=== PATIENT | female | born 1965 | race African-American/Black ===

== ENCOUNTER → 2020-08-12 12:51 | Outpatient (CLI) | payer OTHER, SELFPAY ==
--- NOTE | ~2020-08-12 | MR_ITS ---
EXAMINATION: MR brain/brain stem wo/w con EXAM DATE: 08/12/2020 14:26 INDICATION: Multiple sclerosis. TECHNIQUE: Magnetic resonance imaging (MRI) of the brain/brain stem obtained without contrast. Sagit angelica T1, axial diffusion, gradient echo (T2*), T1, T2, FLAIR sequences obtained. Demyelinating protoco l was utilized including sagittal FLAIR images. Patient was then injected with 10 cc intravenous Mu ltihance contrast. Axial and coronal postcontrast T1 weighted sequences obtained. There is no prior study for comparison. FINDINGS: There is minimal periventricular and subcortical hyperintensity, a non-specific finding wit h differential diagnosis including premature chronic small vessel ischemic disease (especially if the patient has cardiovascular risk factors), migraine headaches, demyelinating disease such as multiple sclerosis or acute disseminated encephalomyelitis (ADEM), vasculopathy, lyme's disease or reactive a strocytosis (gliosis) secondary to nonspecific etiology. No definite corpus callosal or posterior fos sa signal abnormalities. There are no areas of restricted diffusion to suggest acute infarction. There is no acute hemorrhage seen on the T2*, a hemosiderin sensitive sequence. No intraparenchymal brain mass. The ventricles a re normal in size. There are no extra-axial collections. Flow voids are seen in the cerebral arteri es on the T2-weighted sequences consistent with their expected patency. The orbits are unremarkable. Soft tissue is unremarkable. There are no areas of abnormal enhancement on the postcontrast image s. IMPRESSION: 1. Mild nonspecific periventricular white matter signal change. Reviewed, dictated and finalized at location A. F CLERK
--- NOTE | ~2020-08-12 | MR_ITS ---
EXAMINATION: MR cervical spine wo/w con EXAM DATE: 08/12/2020 14:17 INDICATION: Multiple sclerosis. Previous neck surgery several years ago. TECHNIQUE: Multi-sequential, multiplanar MR images of the cervical spine were obtained without contra st. Axial T2, axial T2 MERGE sequence. Sagittal T1, T2, T2 fat saturation images also obtained. Axi al T1 weighted sequence. Patient was then injected with 10 mL Multihance intravenous contrast and re imaged. Postcontrast axial and sagittal T1-weighted fat saturation sequences were obtained. Compar [place] is made to prior examination from 03/26/2011. FINDINGS: Metallic artifact from C3 through C7, these vertebral bodies are essentially nonvisualized. Mid cervical portion of spinal cord also not evaluated, but otherwise the cervical spinal cord signa l is normal as is the craniocervical junction. The upper thoracic spinal cord also has normal signal intensity. There are no areas of abnormal enhancement on the post contrast images. IMPRESSION: Limited mid cervical cord evaluation, but otherwise normal cervical and upper thoracic c ord signal. Reviewed, dictated and finalized at location A. ATION REVIEWER IMPRESSION: Limited mid cervical cord evaluation, but otherwise normal cervica l and upper thoracic cord signal.
[2020-08-12 13:27] LABS: Estimated Glomerular Filt Rate 52
== END ==
DX: G35 Multiple sclerosis (principal); R93.0 Abnormal findings on diagnostic imaging of skull and head, not elsewhere classified
CPT/HCPCS: 70553; 72156; A9577

== ENCOUNTER → 2021-06-01 13:38 | Outpatient (CLI) | payer OTHER, SELFPAY ==
--- NOTE | ~2021-06-01 | MR_ITS ---
EXAMINATION: MR brain/brain stem wo/w con DATE: 06/01/2021 15:12 INDICATION: Multiple sclerosis. TECHNIQUE: Magnetic resonance imaging (MRI) of the brain and brainstem was performed without and with 13 mL MultiHance intravenous contrast. Sequences included sagittal and axial T1-weighted FLAIR, axia l T1-weighted FSE, axial diffusion-weighted FS EPI, sagittal T2-weighted FLAIR, axial T2*-weighted GR E, axial T2-weighted FLAIR Propeller, and axial T2-weighted Propeller. Postcontrast sequences include d axial, coronal, and sagittal T1-weighted FSE. Apparent diffusion coefficient (ADC) maps were create d. COMPARISON: Brain MRI 08/12/2020 FINDINGS: There are greater than 20 total lesions of increased T2-weighted signal intensity in the br ain. Of these lesions, many are periventricular, several are juxtacortical, and one is infratentorial . None of the lesions enhance. There is no intracranial hemorrhage or acute ischemic infarct. The eddie tricles are normal in size. The paranasal sinuses are clear. The orbits are normal. The mastoid air c ells are normal. IMPRESSION: 1. Stable number and distribution of brain lesions, consistent with multiple sclerosis. Reviewed, dictated and finalized at location A. IMPRESSION: 1. Stable number and distribution of brain lesions, consistent with multiple sc lerosis.
--- NOTE | ~2021-06-01 | MR_ITS ---
EXAMINATION: MR cervical spine wo/w con DATE: 06/01/2021 15:04 INDICATION: Multiple sclerosis. TECHNIQUE: Magnetic resonance imaging (MRI) of the cervical spine was performed without and with 13 m L MultiHance intravenous contrast. Sequences included sagittal and axial T2-weighted FSE, sagittal ST IR FSE, and sagittal and axial T1-weighted FSE. Postcontrast sequences included sagittal and axial T1 -weighted FS FSE. COMPARISON: Cervical spine MRI 08/12/2020 FINDINGS: Bone alignment is normal. Metal artifact obscures C3-T1. At C2-C3, the disc is normal. Ther e is a lesion of increased T2-weighted signal intensity involving the anaya and medulla on the left. T he visualized portions of the spinal cord demonstrate normal signal intensity. There is multilevel mi ld to moderate facet joint osteoarthritis. IMPRESSION: 1. Stable brainstem lesion, consistent with multiple sclerosis. 2. Metal artifact obscures C3-T1. Reviewed, dictated and finalized at location A.
[2021-06-01 14:09] LABS: Estimated Glomerular Filt Rate 51
== END ==
DX: G35 Multiple sclerosis (principal); R93.0 Abnormal findings on diagnostic imaging of skull and head, not elsewhere classified
CPT/HCPCS: 70553; 72156; A9577

== ENCOUNTER → 2022-05-11 11:59 | Outpatient (CLI) | payer OTHER, SELFPAY ==
--- NOTE | ~2022-05-11 | MR_ITS ---
EXAMINATION: MR brain/brain stem wo/w con DATE: 05/11/2022 13:11 INDICATION: Demyelinating disease of central nervous system. TECHNIQUE: Magnetic resonance imaging (MRI) of the brain and brainstem was performed without and with 12 mL MultiHance intravenous contrast. COMPARISON: Brain MRI 06/01/2021 FINDINGS: There are greater than 20 stones in the increased T2-weighted signal intensity in the brain . Of these lesions, many are periventricular, several are juxtacortical, and one is infratentorial in the left brainstem. No liver lesions enhance. There is no acute ischemic infarct or intracranial hem orrhage. The ventricles are normal in size. The paranasal sinuses are clear. The orbits are normal. T here are small bilateral mastoid effusions. IMPRESSION: 1. Brain lesions, likely stable in number and distribution considering differences in technique, cons istent with multiple sclerosis. Reviewed, dictated and finalized at location A. IMPRESSION: 1. Brain lesions, likely stable in number and distribution considering differen kunal in technique, consistent with multiple sclerosis.
== END ==
DX: G37.9 Demyelinating disease of central nervous system, unspecified (principal)
CPT/HCPCS: 70553; A9577

== ENCOUNTER → 2022-08-16 13:06 | Outpatient (CLI) | payer OTHER, SELFPAY ==
--- NOTE | ~2022-08-16 | XR_ITS ---
EXAM: XR shoulder RT min 2V, XR shoulder LT min 2V DATE: 08/16/2022 14:28 HISTORY: Chronic pain both shoulders . COMPARISON: None available. FINDINGS: Normal mineralization. Notch-like defect in the superolateral aspect of the bilateral elizabeth ral heads. No acute fracture or dislocation. No lytic or blastic lesion. Mild degenerative AC joint a nd glenohumeral changes bilaterally. No erosion or periosteal change. Soft tissues within normal limi ts. IMPRESSION: Chronic humeral head defects may represent Hill-Sachs lesions, correlate with history of prior dislocations. Reviewed, dictated and finalized at location K. TRIC CUTTER OPERATOR IMPRESSION: Chronic humeral head defects may represent Hill-Sachs lesions, shari elate with history of prior dislocations.
== END ==
DX: M25.511 Pain in right shoulder (principal); M25.512 Pain in left shoulder; G89.29 Other chronic pain
CPT/HCPCS: 73030

== ENCOUNTER 2025-06-28 09:58 | Emergency (ER) | payer MEDICARE, SELFPAY ==
--- NOTE | 2025-06-28 10:01 | ED.GENADULT ---
HPI - General Adult General Chief complaint: Upper Respiratory Infection Stated complaint: Cough/Sinus Time Seen by Provider: 06/28/25 10:01 Source: patient Mode of arrival: ambulatory Limitations: no limitations History of Present Illness HPI narrative: 5-year-old female patient presents to [facility] with complaints of cold symptoms with a cough for the past week. Patient states she has had runny nose, congestion, coughing but denies any fevers body aches or chills she is aware of. Patient states that they did recently just got back from scuba diving in the [facility]. 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 Related Data Home Medications ?Medication ?Instructions ?Recorded ?Confirmed ?Last Taken ?Type epinephrine 0.3 mg/0.3 mL 06/28/25 Unknown History injection, auto-injector estradiol 0.5 mg tablet mg 06/28/25 Unknown History fingolimod 0.5 mg capsule mg 06/28/25 Unknown History nystatin-triamcinolone 100,000 applic topical 06/28/25 Unknown History unit/g-0.1 % topical cream rosuvastatin 5 mg tablet mg 06/28/25 Unknown History Allergies Allergy/AdvReac Type Severity Reaction Status Date / Time bee venom protein (honey Allergy Severe Anaphylaxis Verified 06/28/25 10:37 bee) (bees) venom-wasp Allergy Severe Anaphylaxis Verified 06/28/25 10:37 aspirin Allergy Intermediate Swelling Verified 06/28/25 10:37 Sulfa (Sulfonamide Allergy Intermediate Rash Verified 06/28/25 10:37 Antibiotics) sulfamethoxazole (From Allergy Intermediate Rash Verified 06/28/25 10:37 Bactrim) tramadol Allergy Intermediate Swelling Verified 06/28/25 10:37 trimethoprim (From Bactrim) Allergy Intermediate Rash Verified 06/28/25 10:37 Review of Systems Review of Systems: CONSTITUTIONAL: Denies fever, chills, or sweats. EYES: Denies visual changes, redness, or discharge. ENT: Positive rhinorrhea, congestion, sore throat, and bilateral otalgia. CARDIOVASCULAR: Denies chest pain, palpitations, or edema. RESPIRATORY: positive cough denies dyspnea. GASTROINTESTINAL: Denies abdominal pain, nausea, vomiting, or diarrhea. GENITOURINARY: Denies dysuria or hematuria. SKIN: Denies rash or itching. MUSCULOSKELETAL: Denies back pain, joint pain, or myalgia. NEUROLOGIC: Denies headache, numbness, or weakness. PSYCHIATRIC: Denies anxiety or depression. [facility] Past Medical History Medical History (Updated 06/28/25 @ 10:49 by Sophia Mcgregor APRN) Pre-diabetes MS (multiple sclerosis) Comments At the time of my signature I agree with nursing past medical history, surgical, social, and family history. There is no relevant family history pertinent to the presenting complaint. Exam Narrative: GENERAL: Well-appearing, well-nourished, and in no acute distress. HEAD: Normocephalic, atraumatic. EYES: PERRLA and EOMI. ENT: Nares clear, clear rhinorrhea or epistaxis. Mucous membranes moist. posterior pharynx with no erythema, tonsillar enlargement, exudates or lesions present. Bilateral canals appear narrow with yellow pus noted to bilateral canals. Unable to visualize TM well in either Ear. NECK: Supple. No lymphadenopathy CHEST: Clear to auscultation. No respiratory distress. HEART: Regular rate and rhythm. No murmur heard. Normal peripheral pulses. ABDOMEN: Soft, nontender, nondistended, normal active bowel sounds. EXTREMITIES: Normal range of motion. No edema. SKIN: Warm, dry, no rash. NEURO: No focal deficits. Alert and oriented x3. Course Course Level of Care: Express Care Visit Reevaluation(s) Reevaluation #1: Re-evaluated patient notified her that her Medicare strep today is negative. We will send that off to lab for a culture if the culture comes back positive we will call her and antibiotics. Discussed with patient we will discharge her home with an ear drop for bilateral otitis externa as well as Tesjohny Song to help with the coughing symptoms she can continue taking [id number] medications and treating her symptoms. Patient verbalized understanding denies any other questions or concerns at this time. Date: 06/28/25 Time: 11:04 Vital Signs Vital signs: Vital Signs Temperature 37.2 C 06/28/25 10:13 Pulse Rate 61 06/28/25 10:13 Respiratory Rate 18 06/28/25 10:13 Blood Pressure 120/78 06/28/25 10:13 Pulse Oximetry 99 06/28/25 10:13 Oxygen Delivery Room Air 06/28/25 10:13 Temperature 37.2 C 06/28/25 10:13 Pulse Rate 61 06/28/25 10:13 Respiratory Rate 18 06/28/25 10:13 Blood Pressure 120/78 06/28/25 10:13 Pulse Oximetry 99 06/28/25 10:13 Oxygen Delivery Room Air 06/28/25 10:13 vital signs reviewed. Medical Decision Making MDM Narrative Medical decision making narrative: Discussed with patient that a point of care testing for flu and COVID have both come back negative. Patient is requesting of throat swabbed for and strep. We will complete that. If that is negative most likely we will treat her as a virus and she can continue to treat her symptoms with [id number] medication. Discussed with patient I will give her some Tessalon Perles for the cough as well as an antibiotic ear drop for bilateral otitis externa. Differential Diagnosis Differential Diagnosis: Differential diagnosis: Allergic rhinitis, chronic sinusitis, tonsillitis, acute sinusitis, infectious mononucleosis, seasonal influenza, pertussis, diphtheria, meningococcal disease, viral syndrome, viral bronchitis, RSV, COVID-19 Vital Signs Vital Signs: Vital Signs Temperature 37.2 C 06/28/25 10:13 Pulse Rate 61 06/28/25 10:13 Respiratory Rate 18 06/28/25 10:13 Blood Pressure 120/78 06/28/25 10:13 Pulse Oximetry 99 06/28/25 10:13 Oxygen Delivery Room Air 06/28/25 10:13 Temperature 37.2 C 06/28/25 10:13 Pulse Rate 61 06/28/25 10:13 Respiratory Rate 18 06/28/25 10:13 Blood Pressure 120/78 06/28/25 10:13 Pulse Oximetry 99 06/28/25 10:13 Oxygen Delivery Room Air 06/28/25 10:13 Critical Care Time Critical Care Time Critical Care Time: No Discharge Plan Discharge Clinical Impression: Otitis externa, Viral URI with cough, Pharyngitis Patient Disposition: Home Condition: Stable Instructions: Antibiotic Form, Viral Syndrome (ED) Additional Instructions: Return to the emergency department if: You have severe ear pain. You are suddenly unable to hear at all. You have new swelling in your face, behind your ears, or in your neck. You suddenly cannot move part of your face. Your face suddenly feels numb. Contact your healthcare provider if: You have a fever. Your signs and symptoms do not get better after 2 days of treatment. Your signs and symptoms go away for a time, but then come back. You have questions or concerns about your condition or care. Medicines: NSAIDs , such as ibuprofen, help decrease swelling, pain, and fever. This medicine is available with or without a doctor's order. NSAIDs can cause stomach bleeding or kidney problems in certain people. If you take blood thinner medicine, always ask if NSAIDs are safe for you. Always read the medicine label and follow directions. Do not give these medicines to children under 6 months of age without direction from your child's healthcare provider. Acetaminophen decreases pain and fever. It is available without a doctor's order. Ask how much to take and how often to take it. Follow directions. Acetaminophen can cause liver damage if not taken correctly. Ear drops that contain an antibiotic may be given. The antibiotic helps treat a bacterial infection. You may also be given steroid medicine. The steroid helps decrease redness, swelling, and pain. How to use eardrops: Lie down on your side with your infected ear facing up. Carefully drip the correct number of eardrops into your ear. Have another person help you if possible. Gently move the outside part of your ear back and forth to help the medicine reach your ear canal. Stay lying down in the same position (with your ear facing up) for 3 to 5 minutes. Prevent otitis externa: Do not put cotton swabs or foreign objects in your ears. Wrap a clean moist washcloth around your finger, and use it to clean your outer ear and remove extra ear wax. Use ear plugs when you swim. Dry your outer ears completely after you swim or bathe. Patient Language: Luxembourgish Prescriptions: New benzonatate 200 mg capsule 200 mg PO TID PRN (Reason: cough) 10 Days Qty: 30 0RF ofloxacin 0.3 % drops 10 drp EACH EAR DAILY 7 Days Qty: 10 0RF No Action nystatin-triamcinolone 100,000-0.1 unit/g-% cream TOPICAL estradiol 0.5 mg tablet epinephrine 0.3 mg/0.3 mL auto-injector rosuvastatin 5 mg tablet fingolimod 0.5 mg capsule Follow-up/Referrals: UNKNOWN,DOCTOR [Non-Staff] Time of Disposition: 11:03
[2025-06-28 10:13] VITALS: BP 120/78; PULSE 61; RESP 18; TEMP 37.2; O2SAT 99
[2025-06-30 11:49] LABS: EDCOVIDSCREEN Negative (Negative); EDINFLUASCREEN Negative (Negative); EDINFLUBSCREEN Negative (Negative)
[2025-06-30 11:49] LABS: EDSTREPNEGPOS1 Negative (Negative)
[2025-06-30 11:49] LABS: EDCOVIDSCREEN Negative (Negative); EDINFLUASCREEN Negative (Negative); EDINFLUBSCREEN Negative (Negative)
== END 2025-06-28 11:05 | disposition home or self-care (01) ==
PROVIDERS: Emergency Provider Nurse Practitioner Family
DX: H60.93 Unspecified otitis externa, bilateral (principal); J06.9 Acute upper respiratory infection, unspecified; R05.9 Cough, unspecified; J02.9 Acute pharyngitis, unspecified; Z20.822 Contact with and (suspected) exposure to COVID-19; G35.D Multiple sclerosis, unspecified; R73.03 Prediabetes
CPT/HCPCS: 87081; 87426; 87804; 87880; 99203; G0463